=== PATIENT | female | born 1985 | race Caucasian/White ===

== ENCOUNTER 2016-10-04 14:29 | Emergency (ER) | payer BC, OTHER ==
[~2016-10-04 14:29] MED LIST: /LANS30GR PO; IBUP80TA PO; MIRALEX PO; NYSTATIN ORAL PO; VICO5TAB OR
[2016-10-04] MEDS ORDERED: MORPHINE 4 MG/ML 1ML SYRINGE As Ordered ONE (16:07)
[2016-10-04] MEDS ORDERED: KETOROLAC 30 MG/ML VIAL (J1885) As Ordered ONE (16:07)
[2016-10-04] MEDS ORDERED: ONDANSETRON 4MG/2ML VIAL (J2405) As Ordered ONE (16:07)
[2016-10-04 16:40] LABS: BASO % 0.4 % (0.0-1.0); EOS # 0.1 K/mm3 (0.0-0.50); EOS % 1.2 % (0.0-3.0); LARGE UNSTAINED CELL # 0.1 K/mm3 (0.0-0.4); LARGE UNSTAINED CELL % 1.1 % (0.0-4.0); LYMPH # 1.7 K/mm3 (1.5-4.5); MEAN CORPUSCULAR HEMOGLOBIN 28.3 pg (27.0-33.0); MEAN CORPUSCULAR HGB CONC 32.7 g/dl (32.0-36.5); MEAN CORPUSCULAR VOLUME 86.4 fl (80.0-96.0); MONO # 0.3 K/mm3 (0.0-0.8); MONO % 3.7 % (0.0-5.0); NEUTROPHILS # 6.9 K/mm3 (1.8-7.7); NEUTROPHILS % 74.6 % (36.0-66.0); PLATELET COUNT, AUTOMATED 220 k/mm3 (150-450); RED CELL DISTRIBUTION WIDTH 13.6 % (11.5-14.5); WHITE BLOOD COUNT 9.2 K/mm3 (4.0-10.0)
--- NOTE | 2016-10-04 16:55 | REP ---
CT study of the abdomen and pelvis without IV or oral contrast: Renal stone protocol. History: Renal colic. Comparison CT study is from March 14, 2014 done [address] [facility] CT findings: Preliminary digital outcomes specialist radiograph demonstrates tubal ligation clamps bilaterally in the pelvis and clips in the right upper quadrant consistent with a previous cholecystectomy. The lung bases are clear on axial CT images. No pleural effusion is seen. There are granulomatous calcifications, one in the lower lobe on the left and in the middle lobe on the right. There is a granulomatous calcification in the right lobe of the liver and clips are noted in the gallbladder fossa. The liver and spleen are normal in size and otherwise normal and homogeneous in texture. The gallbladder is absent. Pancreas shows no abnormality. No adrenal lesion is seen on either side. There is no evidence of hydronephrosis. No intrarenal calculus is seen. No ureteral stone is observed. No uterine or ovarian abnormality is observed. Urinary bladder is intact. A normal appendix is seen in the right lower quadrant. Small and large intestinal bowel loops are normal in appearance. No bony destructive lesion is seen. No abdominal wall defect is observed. Impression: Post cholecystectomy and bilateral tubal ligation changes. Normal appendix seen. No urinary tract calculus or hydronephrosis seen. No acute intra-abdominal abnormality noted. Signed by Olivier Suarez MD 10/04/2016 04:59 P
--- NOTE | 2016-10-04 17:05 | EDDOCDS ---
Physician Documentation [facility] Name: Imelda Umanzor Age: 31 yrs Sex: Female : 1985 Arrival Date: 10/04/2016 Time: 14:29 Bed 6 Private MD: NO PRIMARY PHYSICIAN, . Disposition: 10/04/16 16:55 Discharged to Home/Self Care. Impression: Unspecified renal colic. - Condition is Stable. - Discharge Instructions: Kidney Stones, Ureteral Colic. - Prescriptions for Percocet 5- 325 mg Oral Tablet - take 1 tablet by ORAL route every 6 hours As needed MDD: 4 tabs; 20 tablet. Zofran 4 mg Oral Tablet - take 1 tablet by ORAL route 4 times per day As needed; 10 tablet. - Medication Reconciliation, Local Pharmacy Hours form. - Follow up: George Ruff; When: Call to arrange an appointment; Reason: Further diagnostic work-up, Recheck today's complaints, Continuance of care. - Problem is an acute exacerbation. - Symptoms have improved. Historical: - Allergies: No known drug Allergies; - Home Meds: 1. none - PMHx: Kidney stones; - PSHx: Cholecystectomy; - Social history: Smoking status: Patient uses tobacco products, light tobacco smoker. No barriers to communication noted, The patient speaks fluent Hungarian, Speaks appropriately for age. - Family history: Not pertinent. - : The pt / caregiver states he / she is not on anticoagulants. Home medication list is obtained from the patient. - Exposure Risk Screening:: None identified. 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 2 in. (157.48 cm) (R); 16:41 Pain 6/10; kr3 16:54 BP 119 / 69; Pulse 66; Resp 16; Temp 97.1; Pulse Ox 100% ; Pain 5/10; ld5 14:31 Body Mass Index 29.26 (72.57 kg, 157.48 cm) dd6 MDM: 14:44 UCG by Nursing ordered. dt4 14:44 Urinalysis Ordered. EDMS 14:44 Urine Culture Ordered. EDMS 15:52 Urinalysis Reviewed. ke 16:02 NS 0.9% 1000 ml IV at 100 mL/hr continuous ordered. ke 16:02 Ondansetron 4 mg IVP once ordered. ke 16:02 ketorolac 30 mg IVP once ordered. ke 16:02 IV Saline Lock ordered. ke 16:02 Undress patient appropriately for examination ordered. ke 16:03 morphine 4 mg IVP once ordered. ke 16:04 Amylase Ordered. EDMS 16:04 Basic Metabolic Profile Ordered. EDMS 16:04 CBC with Diff Ordered. EDMS 16:04 Lipase Ordered. EDMS 16:04 Liver Profile Ordered. EDMS 16:04 CT ABD & PELVIS: No Contrast Ordered. EDMS 16:04 NOTHING BY MOUTH+DIET ordered. EDMS 16:31 Financial registration complete. zo 16:32 [facility] [place] Agreement was scanned into [employer] and attached to record. zo Point of Care Testing: Urine : 15:18 hCG Reading: Negative; Control Reading: Positive; srm Ranges: Administered Medications: 14:19 Drug: morphine 4 mg [morphine 4 mg/mL intravenous cartridge (1 mL)] Route: IVP; Site: kr3 left hand; 16:41 Follow up: Pain 6/10 Adult; Response: Pain is decreased kr3 16:17 Drug: NS 0.9% 1000 ml [sodium chloride 0.9 % intravenous solution] Route: IV; Rate: 100 kr3 mL/hr; Site: left hand; 16:57 Follow up: IV Status: Completed infusion; IV Intake: 100ml ld5 16:17 Drug: Ondansetron 4 mg [ondansetron HCl 2 mg/mL intravenous solution (2 mL)] Route: kr3 IVP; Site: left hand; 16:21 Drug: ketorolac 30 mg [ketorolac 30 mg/mL (1 mL) injection solution (1 mL)] Route: IVP; kr3 Site: left hand; 16:41 Follow up: Response: Pain is decreased kr3 Signatures: Dispatcher [employer] EDMS Jaswant Werner, CHIEF BUSINESS DEVELOPMENT OFFICER CHIEF BUSINESS DEVELOPMENT OFFICER Ivonne Murrell RN RN kr3 Elmira Wharton RN RN odin3 Yuliet Holden Laura, RN RN ld5 Yamilka Anne, SYLVIA WARD dt4 The chart was reviewed and I authenticate all verbal orders and agree with the evaluation and treatment provided.Attachments: 16:32 [facility] Payment Agreement zo MTDD
--- NOTE | 2016-10-04 17:05 | EDDOCDS ---
Nurse's Notes [facility] Name: Imelda Umanzor Age: 31 yrs Sex: Female : 1985 Arrival Date: 10/04/2016 Time: 14:29 Bed 6 Private MD: NO PRIMARY PHYSICIAN, . Diagnosis: Unspecified renal colic Presentation: 10/04 14:38 Presenting complaint: Patient states: Reports back pain and right abdominal pain. Had a jo3 kidney stone in July of 2016. states that it feels like that. Acute neurological deficits are not present. Mechanism of Injury: No Mechanism of Injury. Adult Sepsis Screening: The patient does not have new or worsening altered mentation. Patient's respiratory rate is less than 22. Systolic blood pressure is greater than 100. Patient has a qSOFA score of 0- Negative Sepsis Screen. Suicide/Homicide risk assessment- the patient denies having any suicidal and/or homicidal ideations and does not present with any other emotional, behavioral or mental health complaints. Status: Patient is not a guest service representative or dependent. Transition of care: patient was not received from another setting of care. 14:38 Acuity: DEE Level 3 jo3 14:38 Method Of Arrival: Walkin/Carried/Asstd jo3 Triage Assessment: 14:40 Pain: Pain currently is 10 out of 10 on a pain scale. HIV screening NA for this visit jo3 Offered previously. 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 none - PMHx: Kidney stones; - PSHx: Cholecystectomy; - Social history: Smoking status: Patient uses tobacco products, light tobacco smoker. No barriers to communication noted, The patient speaks fluent Latvian, Speaks appropriately for age. - Family history: Not pertinent. - : The pt / caregiver states he / she is not on anticoagulants. Home medication list is obtained from the patient. - Exposure Risk Screening:: None identified. Screenin:24 Screening information is obtained from the patient. Fall risk: No risks identified. kr3 Assistance ADL's: requires no assistance with activities of daily living. Abuse/DV Screen: The patient / caregiver reports he/she is: not in a situation that causes fear, pain or injury. Nutritional screening: No deficits noted. Advance Directives: Currently, there is no health care proxy. home support is adequate. Assessment: 16:23 General: Appears uncomfortable, Behavior is cooperative. Pain: Location: posterior kr3 aspect of right lateral abdomen, anterior aspect of right lateral abdomen and right lower quadrant Pain currently is 10 out of 10 on a pain scale. Neurological: Level of Consciousness is awake, alert. Respiratory: Respiratory effort is even, unlabored. GI: Abdomen is non- distended Reports lower abdominal pain, nausea. : Denies burning with urination, inability to void, urinary frequency, urgency. Derm: Skin is normal. Musculoskeletal: No deficits noted. 16:41 Reassessment: Patient appears in no apparent distress at this time. Patient states kr3 feeling better. 16:54 General: Appears in no apparent distress, Behavior is cooperative. Pain: Pain currently ld5 is 5 out of 10 on a pain scale. Respiratory: Airway is patent Respiratory effort is even, unlabored. Vital Signs: 14:31 BP 182 / 95; Pulse 99; Resp 18 S; Temp 99.0(O); Pulse Ox 100% on R/A; Weight 72.57 kg dd6 (R); Height 5 ft. 2 in. (157.48 cm) (R); 16:41 Pain 6/10; kr3 16:54 BP 119 / 69; Pulse 66; Resp 16; Temp 97.1; Pulse Ox 100% ; Pain 5/10; ld5 14:31 Body Mass Index 29.26 (72.57 kg, 157.48 cm) dd6 Vitals: 14:31 Log In Time: October 04, 2016 at 14:29. dd6 ED Course: 14:30 Patient visited by Charan Moore PCA. dd6 14:30 Ron Chaparro is Private Physician. dd6 14:30 NO PRIMARY PHYSICIAN, . is Private Physician. dd6 14:30 Patient moved to Waiting dd6 14:32 Patient moved to Pre RCE dd6 14:39 Triage Initiated jo3 14:41 Patient visited by Elmira Wharton RN. jo3 15:18 Urine Culture Sent. srm 15:18 Urinalysis Sent. srm 15:56 Patient visited by Marian Smith PCA. jb5 15:56 Patient moved to Triage 3 jb5 15:57 Ivonne Harris,DANE is Primary Nurse. jb5 15:57 Jaswant Werner FNP is [facility]. ke 15:57 Patient visited by Jaswant Werner FNP. ke 15:57 Patient visited by Jaswant Werner FNP. ke 15:57 Patient moved to 6 jb5 16:21 Amylase Sent. kr3 16:21 Basic Metabolic Profile Sent. kr3 16:21 CBC with Diff Sent. kr3 16:21 Lipase Sent. kr3 16:21 Liver Profile Sent. kr3 16:24 Inserted saline lock: 22 gauge in left hand and blood collected. The patient tolerated kr3 the procedure well. 16:30 Patient visited by Jaswant Werner FNP. ke 16:32 [facility] Payment Agreement was scanned into [employer] and attached to record. zo 16:42 The patient / caregiver is instructed regarding the plan of care and ED course. Patient kr3 has correct armband on for positive identification. Placed in gown. Bed in low position. Call light in reach. Side rails up X 1. 16:54 Discontinued lock intact, bleeding controlled, pressure dressing applied, No ld5 redness/swelling at site. No procedures done that require assistance. 16:55 George Ruff is Referral Physician. ke 16:57 Patient visited by Amy Diaz RN. ld5 Administered Medications: 14:19 Drug: morphine 4 mg [morphine 4 mg/mL intravenous cartridge (1 mL)] Route: IVP; Site: kr3 left hand; 16:41 Follow up: Pain 6/10 Adult; Response: Pain is decreased kr3 16:17 Drug: NS 0.9% 1000 ml [sodium chloride 0.9 % intravenous solution] Route: IV; Rate: 100 kr3 mL/hr; Site: left hand; 16:57 Follow up: IV Status: Completed infusion; IV Intake: 100ml ld5 16:17 Drug: Ondansetron 4 mg [ondansetron HCl 2 mg/mL intravenous solution (2 mL)] Route: kr3 IVP; Site: left hand; 16:21 Drug: ketorolac 30 mg [ketorolac 30 mg/mL (1 mL) injection solution (1 mL)] Route: IVP; kr3 Site: left hand; 16:41 Follow up: Response: Pain is decreased kr3 Point of Care Testing: Urine : 15:18 hCG Reading: Negative; Control Reading: Positive; srm Ranges: Intake: 16:57 IV: 100.00ml; Total: 100.00ml. ld5 Order Results: Lab Order: Urinalysis; SPEC'M 10/04/16 15:13 Test: APPEARANCE, URINE; Value: CLOUDY; Range: CLEAR; Abnormal: Above high normal; Status: F Test: COLOR, URINE; Value: YELLOW; Range: YELLOW; Status: F Test: PH,URINE; Value: 7.0; Range: 5.0-9.0; Units: UNITS; Status: F Test: SPECIFIC GRAVITY URINE AUTO; Value: 1.018; Range: 1.002-1.035; Status: F Test: PROTEIN, URINE AUTO; Value: 1+; Range: NEGATIVE; Abnormal: Above high normal; Units: mg/dL; Status: F Test: GLUCOSE, URINE (UA) AUTO; Value: NEGATIVE; Range: NEGATIVE; Units: mg/dL; Status: F Test: KETONE, URINE AUTO; Value: NEGATIVE; Range: NEGATIVE; Units: mg/dL; Status: F Test: UROBILINOGEN, URINE AUTO; Value: 2.0; Range: 0.0-2.0; Abnormal: Above high normal; Units: mg/dL; Status: F Test: BILIRUBIN, URINE AUTO; Value: NEGATIVE; Range: NEGATIVE; Status: F Test: NITRITE, URINE AUTO; Value: NEGATIVE; Range: NEGATIVE; Status: F Test: LEUKOCYTE ESTERASE, URINE AUTO; Value: 1+; Range: NEGATIVE; Abnormal: Above high normal; Status: F Test: BLOOD, URINE BLOOD; Value: 3+; Range: NEGATIVE; Abnormal: Above high normal; Status: F Test: WBC, URINE AUTO; Value: 7; Range: 0-3; Abnormal: Above high normal; Units: /HPF; Status: F Test: RBC, URINE AUTO; Value: TNTC; Range: 0-3; Abnormal: Above high normal; Units: /HPF; Status: F Test: BACTERIA, URINE AUTO; Value: 1+; Range: NEGATIVE; Abnormal: Above high normal; Status: F Test: SQUAMOUS EPITHELIAL CELL UR AU; Value: 4; Range: 0-6; Units: /HPF; Status: F Test: MUCUS, URINE; Value: SMALL; Range: NEGATIVE; Status: F Test: HYALINE CAST, URINE AUTO; Value: 0; Range: 0-1; Units: /LPF; Status: F Lab Order: CBC with Diff; SPEC'M 10/04/16 16:18 Test: WHITE BLOOD COUNT; Value: 9.2; Range: 4.0-10.0; Units: K/mm3; Status: F Test: RED BLOOD COUNT; Value: 4.76; Range: 4.00-5.40; Units: M/mm3; Status: F Test: HEMOGLOBIN; Value: 13.5; Range: 12.0-16.0; Units: g/dl; Status: F Test: HEMATOCRIT; Value: 41.1; Range: 36.0-47.0; Units: %; Status: F Test: MEAN CORPUSCULAR VOLUME; Value: 86.4; Range: 80.0-96.0; Units: fl; Status: F Test: MEAN CORPUSCULAR HEMOGLOBIN; Value: 28.3; Range: 27.0-33.0; Units: pg; Status: F Test: MEAN CORPUSCULAR HGB CONC; Value: 32.7; Range: 32.0-36.5; Units: g/dl; Status: F Test: RED CELL DISTRIBUTION WIDTH; Value: 13.6; Range: 11.5-14.5; Units: %; Status: F Test: PLATELET COUNT, AUTOMATED; Value: 220; Range: 150-450; Units: k/mm3; Status: F Test: NEUTROPHILS %; Value: 74.6; Range: 36.0-66.0; Abnormal: Above high normal; Units: %; Status: F Test: LYMPH %; Value: 19.0; Range: 24.0-44.0; Abnormal: Below low normal; Units: %; Status: F Test: MONO %; Value: 3.7; Range: 0.0-5.0; Units: %; Status: F Test: EOS %; Value: 1.2; Range: 0.0-3.0; Units: %; Status: F Test: BASO %; Value: 0.4; Range: 0.0-1.0; Units: %; Status: F Test: LARGE UNSTAINED CELL %; Value: 1.1; Range: 0.0-4.0; Units: %; Status: F Test: NEUTROPHILS #; Value: 6.9; Range: 1.8-7.7; Units: K/mm3; Status: F Test: LYMPH #; Value: 1.7; Range: 1.5-4.5; Units: K/mm3; Status: F Test: MONO #; Value: 0.3; Range: 0.0-0.8; Units: K/mm3; Status: F Test: EOS #; Value: 0.1; Range: 0.0-0.50; Units: K/mm3; Status: F Test: BASO #; Value: 0.0; Range: 0.0-0.2; Units: K/mm3; Status: F Test: LARGE UNSTAINED CELL #; Value: 0.1; Range: 0.0-0.4; Units: K/mm3; Status: F Outcome: 16:42 CT Study completed. kr3 16:55 Discharge ordered by Provider. 17:03 Discharge Assessment: patient administered narcotics - yes. Pt provided with safe kr3 discharge. The following High Risk Discharge criteria are identified: None. Discharged to home ambulatory, with friend. Condition: stable. Discharge instructions given to patient, Instructed on discharge instructions, follow up and referral plans. medication usage, no driving heavy equipment, no drinking with medication, Demonstrated understanding of instructions, medications, Pt was receptive of discharge instructions/ teaching. Prescriptions given X 2. Property sent home with patient. 17:04 Patient left the ED. kr3 Signatures: Cesia Rolle, RN RN [facility] Jaswant Werner, COMMUNICATIONS ENGINEERING TECHNICIAN COMMUNICATIONS ENGINEERING TECHNICIAN Ivonne Murrell RN RN kr3 Marian Smith, POOL TABLE MECHANIC POOL TABLE MECHANIC jb5 Elmira WhartonRN RN odin3 Yuliet Holden Daniell, POOL TABLE MECHANIC POOL TABLE MECHANIC dd6 Amy Diaz RN RN ld5 MTDD
--- NOTE | 2016-10-06 18:05 | EDDOCDS ---
Physician Documentation [facility] Name: Imelda Umanzor Age: 31 yrs Sex: Female : 1985 Arrival Date: 10/04/2016 Time: 14:29 Bed 6 Private MD: NO PRIMARY PHYSICIAN, . Disposition: 10/04/16 16:55 Discharged to Home/Self Care. Impression: Unspecified renal colic. - Condition is Stable. - Discharge Instructions: Kidney Stones, Ureteral Colic. - Prescriptions for Percocet 5- 325 mg Oral Tablet - take 1 tablet by ORAL route every 6 hours As needed MDD: 4 tabs; 20 tablet. Zofran 4 mg Oral Tablet - take 1 tablet by ORAL route 4 times per day As needed; 10 tablet. - Medication Reconciliation, Local Pharmacy Hours form. - Follow up: George Ruff; When: Call to arrange an appointment; Reason: Further diagnostic work-up, Recheck today's complaints, Continuance of care. - Problem is an acute exacerbation. - Symptoms have improved. Historical: - Allergies: No known drug Allergies; - Home Meds: 1. none - PMHx: Kidney stones; - PSHx: Cholecystectomy; - Social history: Smoking status: Patient uses tobacco products, light tobacco smoker. No barriers to communication noted, The patient speaks fluent Syriac, Speaks appropriately for age. - Family history: Not pertinent. - : The pt / caregiver states he / she is not on anticoagulants. Home medication list is obtained from the patient. - Exposure Risk Screening:: None identified. 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 2 in. (157.48 cm) (R); 16:41 Pain 6/10; kr3 16:54 BP 119 / 69; Pulse 66; Resp 16; Temp 97.1; Pulse Ox 100% ; Pain 5/10; ld5 14:31 Body Mass Index 29.26 (72.57 kg, 157.48 cm) dd6 MDM: 14:44 UCG by Nursing ordered. dt4 14:44 Urinalysis Ordered. EDMS 14:44 Urine Culture Ordered. EDMS 15:52 Urinalysis Reviewed. ke 16:02 NS 0.9% 1000 ml IV at 100 mL/hr continuous ordered. ke 16:02 Ondansetron 4 mg IVP once ordered. ke 16:02 ketorolac 30 mg IVP once ordered. ke 16:02 IV Saline Lock ordered. ke 16:02 Undress patient appropriately for examination ordered. ke 16:03 morphine 4 mg IVP once ordered. ke 16:04 Amylase Ordered. EDMS 16:04 Basic Metabolic Profile Ordered. EDMS 16:04 CBC with Diff Ordered. EDMS 16:04 Lipase Ordered. EDMS 16:04 Liver Profile Ordered. EDMS 16:04 CT ABD & PELVIS: No Contrast Ordered. EDMS 16:04 NOTHING BY MOUTH+DIET ordered. EDMS 16:31 Financial registration complete. zo 16:32 [facility] Payment Agreement was scanned into [employer] and attached to record. zo 10/05 08:55 T-Sheet-- Draft Copy was scanned into [employer] and attached to record. [facility] Point of Care Testing: Urine : 10/04 15:18 hCG Reading: Negative; Control Reading: Positive; srm Ranges: Administered Medications: 14:19 Drug: morphine 4 mg [morphine 4 mg/mL intravenous cartridge (1 mL)] Route: IVP; Site: kr3 left hand; 16:41 Follow up: Pain 6/10 Adult; Response: Pain is decreased kr3 16:17 Drug: NS 0.9% 1000 ml [sodium chloride 0.9 % intravenous solution] Route: IV; Rate: 100 kr3 mL/hr; Site: left hand; 16:57 Follow up: IV Status: Completed infusion; IV Intake: 100ml ld5 16:17 Drug: Ondansetron 4 mg [ondansetron HCl 2 mg/mL intravenous solution (2 mL)] Route: kr3 IVP; Site: left hand; 16:21 Drug: ketorolac 30 mg [ketorolac 30 mg/mL (1 mL) injection solution (1 mL)] Route: IVP; kr3 Site: left hand; 16:41 Follow up: Response: Pain is decreased kr3 Signatures: Dispatcher [employer] EDMS Jaswant Werner, FLOWER BUNCHER OR PICKER FLOWER BUNCHER OR PICKER Ivonne Murrell RN RN kr3 Elmira WhartonRN RN jo3 Yuliet Holden LauraRN RN ld5 Yamilka Anne PA-C PA-C dt4 Jessica Holliday The chart was reviewed and I authenticate all verbal orders and agree with the evaluation and treatment provided.Attachments: 16:32 [facility] Payment Agreement zo 10/05 08:55 T-Sheet-- Draft Copy [facility] Chart Complete MTDD
--- NOTE | 2016-10-06 18:05 | EDDOCDS ---
Nurse's Notes [facility] Name: Imelda Umanzor Age: 31 yrs Sex: Female : 1985 Arrival Date: 10/04/2016 Time: 14:29 Bed 6 Private MD: NO PRIMARY PHYSICIAN, . Diagnosis: Unspecified renal colic Presentation: 10/04 14:38 Presenting complaint: Patient states: Reports back pain and right abdominal pain. Had a jo3 kidney stone in July of 2016. states that it feels like that. Acute neurological deficits are not present. Mechanism of Injury: No Mechanism of Injury. Adult Sepsis Screening: The patient does not have new or worsening altered mentation. Patient's respiratory rate is less than 22. Systolic blood pressure is greater than 100. Patient has a qSOFA score of 0- Negative Sepsis Screen. Suicide/Homicide risk assessment- the patient denies having any suicidal and/or homicidal ideations and does not present with any other emotional, behavioral or mental health complaints. Status: Patient is not a community service technician or dependent. Transition of care: patient was not received from another setting of care. 14:38 Acuity: DEE Level 3 jo3 14:38 Method Of Arrival: Walkin/Carried/Asstd jo3 Triage Assessment: 14:40 Pain: Pain currently is 10 out of 10 on a pain scale. HIV screening NA for this visit jo3 Offered previously. 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 none - PMHx: Kidney stones; - PSHx: Cholecystectomy; - Social history: Smoking status: Patient uses tobacco products, light tobacco smoker. No barriers to communication noted, The patient speaks fluent Lithuanian, Speaks appropriately for age. - Family history: Not pertinent. - : The pt / caregiver states he / she is not on anticoagulants. Home medication list is obtained from the patient. - Exposure Risk Screening:: None identified. Screenin:24 Screening information is obtained from the patient. Fall risk: No risks identified. kr3 Assistance ADL's: requires no assistance with activities of daily living. Abuse/DV Screen: The patient / caregiver reports he/she is: not in a situation that causes fear, pain or injury. Nutritional screening: No deficits noted. Advance Directives: Currently, there is no health care proxy. home support is adequate. Assessment: 16:23 General: Appears uncomfortable, Behavior is cooperative. Pain: Location: posterior kr3 aspect of right lateral abdomen, anterior aspect of right lateral abdomen and right lower quadrant Pain currently is 10 out of 10 on a pain scale. Neurological: Level of Consciousness is awake, alert. Respiratory: Respiratory effort is even, unlabored. GI: Abdomen is non- distended Reports lower abdominal pain, nausea. : Denies burning with urination, inability to void, urinary frequency, urgency. Derm: Skin is normal. Musculoskeletal: No deficits noted. 16:41 Reassessment: Patient appears in no apparent distress at this time. Patient states kr3 feeling better. 16:54 General: Appears in no apparent distress, Behavior is cooperative. Pain: Pain currently ld5 is 5 out of 10 on a pain scale. Respiratory: Airway is patent Respiratory effort is even, unlabored. Vital Signs: 14:31 BP 182 / 95; Pulse 99; Resp 18 S; Temp 99.0(O); Pulse Ox 100% on R/A; Weight 72.57 kg dd6 (R); Height 5 ft. 2 in. (157.48 cm) (R); 16:41 Pain 6/10; kr3 16:54 BP 119 / 69; Pulse 66; Resp 16; Temp 97.1; Pulse Ox 100% ; Pain 5/10; ld5 14:31 Body Mass Index 29.26 (72.57 kg, 157.48 cm) dd6 Vitals: 14:31 Log In Time: October 04, 2016 at 14:29. dd6 ED Course: 14:30 Patient visited by Charan Moore PCA. dd6 14:30 Ron Chaparro is Private Physician. dd6 14:30 NO PRIMARY PHYSICIAN, . is Private Physician. dd6 14:30 Patient moved to Waiting dd6 14:32 Patient moved to Pre RCE dd6 14:39 Triage Initiated jo3 14:41 Patient visited by Elmira Wharton RN. jo3 15:18 Urine Culture Sent. srm 15:18 Urinalysis Sent. srm 15:56 Patient visited by Marian Smith PCA. jb5 15:56 Patient moved to Triage 3 jb5 15:57 Ivonne Harris,DANE is Primary Nurse. jb5 15:57 Jaswant Werner FNP is [facility]. ke 15:57 Patient visited by Jaswant Werner FNP. ke 15:57 Patient visited by Jaswant Werner FNP. ke 15:57 Patient moved to 6 jb5 16:21 Amylase Sent. kr3 16:21 Basic Metabolic Profile Sent. kr3 16:21 CBC with Diff Sent. kr3 16:21 Lipase Sent. kr3 16:21 Liver Profile Sent. kr3 16:24 Inserted saline lock: 22 gauge in left hand and blood collected. The patient tolerated kr3 the procedure well. 16:30 Patient visited by Jaswant Werner FNP. ke 16:32 [facility] Payment Agreement was scanned into [employer] and attached to record. zo 16:42 The patient / caregiver is instructed regarding the plan of care and ED course. Patient rigoberto has correct armband on for positive identification. Placed in gown. Bed in low position. Call light in reach. Side rails up X 1. 16:54 Discontinued lock intact, bleeding controlled, pressure dressing applied, No ld5 redness/swelling at site. No procedures done that require assistance. 16:55 George Ruff is Referral Physician. ke 16:57 Patient visited by Amy Diaz RN. ld5 17:08 CT ABD & PELVIS: No Contrast Returned. EDMS 10/05 08:55 T-Sheet-- Draft Copy was scanned into [employer] and attached to record. [facility] Administered Medications: 10/04 14:19 Drug: morphine 4 mg [morphine 4 mg/mL intravenous cartridge (1 mL)] Route: IVP; Site: kr3 left hand; 16:41 Follow up: Pain 6/10 Adult; Response: Pain is decreased kr3 16:17 Drug: NS 0.9% 1000 ml [sodium chloride 0.9 % intravenous solution] Route: IV; Rate: 100 kr3 mL/hr; Site: left hand; 16:57 Follow up: IV Status: Completed infusion; IV Intake: 100ml ld5 16:17 Drug: Ondansetron 4 mg [ondansetron HCl 2 mg/mL intravenous solution (2 mL)] Route: kr3 IVP; Site: left hand; 16:21 Drug: ketorolac 30 mg [ketorolac 30 mg/mL (1 mL) injection solution (1 mL)] Route: IVP; kr3 Site: left hand; 16:41 Follow up: Response: Pain is decreased kr3 Point of Care Testing: Urine : 15:18 hCG Reading: Negative; Control Reading: Positive; srm Ranges: Intake: 16:57 IV: 100.00ml; Total: 100.00ml. ld5 Order Results: Lab Order: Urinalysis; SPEC'M 10/04/16 15:13 Test: APPEARANCE, URINE; Value: CLOUDY; Range: CLEAR; Abnormal: Above high normal; Status: F Test: COLOR, URINE; Value: YELLOW; Range: YELLOW; Status: F Test: PH,URINE; Value: 7.0; Range: 5.0-9.0; Units: UNITS; Status: F Test: SPECIFIC GRAVITY URINE AUTO; Value: 1.018; Range: 1.002-1.035; Status: F Test: PROTEIN, URINE AUTO; Value: 1+; Range: NEGATIVE; Abnormal: Above high normal; Units: mg/dL; Status: F Test: GLUCOSE, URINE (UA) AUTO; Value: NEGATIVE; Range: NEGATIVE; Units: mg/dL; Status: F Test: KETONE, URINE AUTO; Value: NEGATIVE; Range: NEGATIVE; Units: mg/dL; Status: F Test: UROBILINOGEN, URINE AUTO; Value: 2.0; Range: 0.0-2.0; Abnormal: Above high normal; Units: mg/dL; Status: F Test: BILIRUBIN, URINE AUTO; Value: NEGATIVE; Range: NEGATIVE; Status: F Test: NITRITE, URINE AUTO; Value: NEGATIVE; Range: NEGATIVE; Status: F Test: LEUKOCYTE ESTERASE, URINE AUTO; Value: 1+; Range: NEGATIVE; Abnormal: Above high normal; Status: F Test: BLOOD, URINE BLOOD; Value: 3+; Range: NEGATIVE; Abnormal: Above high normal; Status: F Test: WBC, URINE AUTO; Value: 7; Range: 0-3; Abnormal: Above high normal; Units: /HPF; Status: F Test: RBC, URINE AUTO; Value: TNTC; Range: 0-3; Abnormal: Above high normal; Units: /HPF; Status: F Test: BACTERIA, URINE AUTO; Value: 1+; Range: NEGATIVE; Abnormal: Above high normal; Status: F Test: SQUAMOUS EPITHELIAL CELL UR AU; Value: 4; Range: 0-6; Units: /HPF; Status: F Test: MUCUS, URINE; Value: SMALL; Range: NEGATIVE; Status: F Test: HYALINE CAST, URINE AUTO; Value: 0; Range: 0-1; Units: /LPF; Status: F Lab Order: Urine Culture; SPEC'M 10/04/16 15:13 Test: URINE CULTURE; Value: <EXTERNAL COMMENT eCWMed> FULL REPORT IN LAB NOTES (eCW and Medent).; Status: F Test: URINE CULTURE; Value: URINE CULTURE RESULT SPECIMEN APPEARS CONTAMINATED; Status: F Lab Order: CBC with Diff; SPEC'M 10/04/16 16:18 Test: WHITE BLOOD COUNT; Value: 9.2; Range: 4.0-10.0; Units: K/mm3; Status: F Test: RED BLOOD COUNT; Value: 4.76; Range: 4.00-5.40; Units: M/mm3; Status: F Test: HEMOGLOBIN; Value: 13.5; Range: 12.0-16.0; Units: g/dl; Status: F Test: HEMATOCRIT; Value: 41.1; Range: 36.0-47.0; Units: %; Status: F Test: MEAN CORPUSCULAR VOLUME; Value: 86.4; Range: 80.0-96.0; Units: fl; Status: F Test: MEAN CORPUSCULAR HEMOGLOBIN; Value: 28.3; Range: 27.0-33.0; Units: pg; Status: F Test: MEAN CORPUSCULAR HGB CONC; Value: 32.7; Range: 32.0-36.5; Units: g/dl; Status: F Test: RED CELL DISTRIBUTION WIDTH; Value: 13.6; Range: 11.5-14.5; Units: %; Status: F Test: PLATELET COUNT, AUTOMATED; Value: 220; Range: 150-450; Units: k/mm3; Status: F Test: NEUTROPHILS %; Value: 74.6; Range: 36.0-66.0; Abnormal: Above high normal; Units: %; Status: F Test: LYMPH %; Value: 19.0; Range: 24.0-44.0; Abnormal: Below low normal; Units: %; Status: F Test: MONO %; Value: 3.7; Range: 0.0-5.0; Units: %; Status: F Test: EOS %; Value: 1.2; Range: 0.0-3.0; Units: %; Status: F Test: BASO %; Value: 0.4; Range: 0.0-1.0; Units: %; Status: F Test: LARGE UNSTAINED CELL %; Value: 1.1; Range: 0.0-4.0; Units: %; Status: F Test: NEUTROPHILS #; Value: 6.9; Range: 1.8-7.7; Units: K/mm3; Status: F Test: LYMPH #; Value: 1.7; Range: 1.5-4.5; Units: K/mm3; Status: F Test: MONO #; Value: 0.3; Range: 0.0-0.8; Units: K/mm3; Status: F Test: EOS #; Value: 0.1; Range: 0.0-0.50; Units: K/mm3; Status: F Test: BASO #; Value: 0.0; Range: 0.0-0.2; Units: K/mm3; Status: F Test: LARGE UNSTAINED CELL #; Value: 0.1; Range: 0.0-0.4; Units: K/mm3; Status: F Radiology Order: CT ABD & PELVIS: No Contrast Test: CT ABD & PELVIS: No Contrast REASON FOR EXAMINATION: Renal colic; CT study of the abdomen and pelvis without IV or oral contrast: Renal stone; protocol.; ; History: Renal colic.; ; Comparison CT study is from March 14, 2014 done at [facility].; ; CT findings: Preliminary digital grain sacker radiograph demonstrates tubal ligation; clamps bilaterally in the pelvis and clips in the right upper quadrant consistent; with a previous cholecystectomy. The lung bases are clear on axial CT images.; No pleural effusion is seen. There are granulomatous calcifications, one in the; lower lobe on the left and in the middle lobe on the right. There is a; granulomatous calcification in the right lobe of the liver and clips are noted in; the gallbladder fossa. The liver and spleen are normal in size and otherwise; normal and homogeneous in texture. The gallbladder is absent. Pancreas shows no; abnormality. No adrenal lesion is seen on either side. There is no evidence of; hydronephrosis. No intrarenal calculus is seen. No ureteral stone is observed.; No uterine or ovarian abnormality is observed. Urinary bladder is intact. A; normal appendix is seen in the right lower quadrant. Small and large intestinal; bowel loops are normal in appearance. No bony destructive lesion is seen. No; abdominal wall defect is observed.; ; Impression:; ; Post cholecystectomy and bilateral tubal ligation changes. Normal appendix seen.; No urinary tract calculus or hydronephrosis seen. No acute intra-abdominal; abnormality noted.; ; ; Signed by; Olivier Suarez MD 10/04/2016 04:59 P; Outcome: 16:42 CT Study completed. kr3 16:55 Discharge ordered by Provider. armando 17:03 Discharge Assessment: patient administered narcotics - yes. Pt provided with safe kr3 discharge. The following High Risk Discharge criteria are identified: None. Discharged to home ambulatory, with friend. Condition: stable. Discharge instructions given to patient, Instructed on discharge instructions, follow up and referral plans. medication usage, no driving heavy equipment, no drinking with medication, Demonstrated understanding of instructions, medications, Pt was receptive of discharge instructions/ teaching. Prescriptions given X 2. Property sent home with patient. 17:04 Patient left the ED. kr3 Signatures: Dispatcher [employer] EDMS Cesia Rolle, Jaswant Zavala RN, TRUCKING MANAGER TRUCKING MANAGER Ivonne Murrell RN RN kr3 Marian Smith, SANITATION DIRECTOR SANITATION DIRECTOR jb5 Elmira Wharton RN RN jo3 Yuliet Holden Daniell, SANITATION DIRECTOR SANITATION DIRECTOR dd6 Amy Diaz RN RN ld5 Jessica Holliday Chart Complete MTDD
--- NOTE | 2016-10-06 18:05 | EDDOCDS ---
Physician Documentation [facility] Name: Imelda Umanzor Age: 31 yrs Sex: Female : 1985 Arrival Date: 10/04/2016 Time: 14:29 Bed 6 Private MD: NO PRIMARY PHYSICIAN, . Disposition: 10/04/16 16:55 Discharged to Home/Self Care. Impression: Unspecified renal colic. - Condition is Stable. - Discharge Instructions: Kidney Stones, Ureteral Colic. - Prescriptions for Percocet 5- 325 mg Oral Tablet - take 1 tablet by ORAL route every 6 hours As needed MDD: 4 tabs; 20 tablet. Zofran 4 mg Oral Tablet - take 1 tablet by ORAL route 4 times per day As needed; 10 tablet. - Medication Reconciliation, Local Pharmacy Hours form. - Follow up: George Ruff; When: Call to arrange an appointment; Reason: Further diagnostic work-up, Recheck today's complaints, Continuance of care. - Problem is an acute exacerbation. - Symptoms have improved. Historical: - Allergies: No known drug Allergies; - Home Meds: 1. none - PMHx: Kidney stones; - PSHx: Cholecystectomy; - Social history: Smoking status: Patient uses tobacco products, light tobacco smoker. No barriers to communication noted, The patient speaks fluent Italian, Speaks appropriately for age. - Family history: Not pertinent. - : The pt / caregiver states he / she is not on anticoagulants. Home medication list is obtained from the patient. - Exposure Risk Screening:: None identified. 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 2 in. (157.48 cm) (R); 16:41 Pain 6/10; kr3 16:54 BP 119 / 69; Pulse 66; Resp 16; Temp 97.1; Pulse Ox 100% ; Pain 5/10; ld5 14:31 Body Mass Index 29.26 (72.57 kg, 157.48 cm) dd6 MDM: 14:44 UCG by Nursing ordered. dt4 14:44 Urinalysis Ordered. EDMS 14:44 Urine Culture Ordered. EDMS 15:52 Urinalysis Reviewed. ke 16:02 NS 0.9% 1000 ml IV at 100 mL/hr continuous ordered. ke 16:02 Ondansetron 4 mg IVP once ordered. ke 16:02 ketorolac 30 mg IVP once ordered. ke 16:02 IV Saline Lock ordered. ke 16:02 Undress patient appropriately for examination ordered. ke 16:03 morphine 4 mg IVP once ordered. ke 16:04 Amylase Ordered. EDMS 16:04 Basic Metabolic Profile Ordered. EDMS 16:04 CBC with Diff Ordered. EDMS 16:04 Lipase Ordered. EDMS 16:04 Liver Profile Ordered. EDMS 16:04 CT ABD & PELVIS: No Contrast Ordered. EDMS 16:04 NOTHING BY MOUTH+DIET ordered. EDMS 16:31 Financial registration complete. zo 16:32 [facility] Payment Agreement was scanned into [employer] and attached to record. zo 10/05 08:55 T-Sheet-- Draft Copy was scanned into [employer] and attached to record. [facility] Point of Care Testing: Urine : 10/04 15:18 hCG Reading: Negative; Control Reading: Positive; srm Ranges: Administered Medications: 14:19 Drug: morphine 4 mg [morphine 4 mg/mL intravenous cartridge (1 mL)] Route: IVP; Site: kr3 left hand; 16:41 Follow up: Pain 6/10 Adult; Response: Pain is decreased kr3 16:17 Drug: NS 0.9% 1000 ml [sodium chloride 0.9 % intravenous solution] Route: IV; Rate: 100 kr3 mL/hr; Site: left hand; 16:57 Follow up: IV Status: Completed infusion; IV Intake: 100ml ld5 16:17 Drug: Ondansetron 4 mg [ondansetron HCl 2 mg/mL intravenous solution (2 mL)] Route: kr3 IVP; Site: left hand; 16:21 Drug: ketorolac 30 mg [ketorolac 30 mg/mL (1 mL) injection solution (1 mL)] Route: IVP; kr3 Site: left hand; 16:41 Follow up: Response: Pain is decreased kr3 Signatures: Dispatcher [employer] EDMS Jaswant Werner, CLERK CLERK Ivonne Murrell RN RN kr3 Elmira WhartonRN RN jo3 Yuliet Holden LauraRN RN ld5 aYmilka Anne PA-C PA-C dt4 Jessica Holliday The chart was reviewed and I authenticate all verbal orders and agree with the evaluation and treatment provided.Attachments: 16:32 [facility] Payment Agreement zo 10/05 08:55 T-Sheet-- Draft Copy [facility] Chart Complete MTDD
== END 2016-10-04 17:04 | disposition home or self-care (01) ==
LOC: M ED 14:29
DX: N20.1 Calculus of ureter (principal); Z72.0 Tobacco use
CPT/HCPCS: 36415; 74176; 81001; 81025; 85025; 87086; 96361; 96374; 96375; 99284; J1885; J2405

== ENCOUNTER 2017-02-03 15:17 | Emergency (ER) | payer MEDICAID, OTHER, SELFPAY ==
[~2017-02-03] VITALS: Ht 154.9 cm; Wt 68.0 kg
[2017-02-03] MEDS ORDERED: ONDANSETRON 4MG/2ML VIAL (J2405) IV ONE (16:15)
[2017-02-03] MEDS ORDERED: MORPHINE 4 MG/ML 1ML SYRINGE IV ONE (16:15)
[2017-02-03 17:07] LABS: ANION GAP 10 MEQ/L (8-16); BLOOD UREA NITROGEN 7 MG/DL (7-18); CALCIUM LEVEL 9.2 MG/DL (8.5-10.1); CARBON DIOXIDE LEVEL 22 MEQ/L (21-32); CHLORIDE LEVEL 109 MEQ/L (98-107); CREATININE FOR GFR 0.65 MG/DL (0.55-1.02); GLOMERULAR FILTRATION RATE > 60.0 (>60); GLUCOSE, FASTING 106 MG/DL (70-105); POTASSIUM SERUM 3.8 MEQ/L (3.5-5.1); SODIUM LEVEL 141 MEQ/L (136-145)
[2017-02-03] MEDS ORDERED: ISOVUE-370 76% 100ML VIAL (Q9967) As Ordered ONE (17:30)
[2017-02-03 17:50] LABS: METHADONE URINE NEGATIVE (NEGATIVE)
[2017-02-03 18:08] LABS: MEAN CORPUSCULAR HGB CONC 34.6 g/dl (32.0-36.5); MEAN CORPUSCULAR VOLUME 80.9 fl (80.0-96.0); PLATELET COUNT, AUTOMATED 291 k/mm3 (150-450); RED CELL DISTRIBUTION WIDTH 13.7 % (11.5-14.5); WHITE BLOOD COUNT 15.8 K/mm3 (4.0-10.0)
[2017-02-03 18:09] LABS: BASO % 0.2 % (0.0-1.0); DIFF SLIDE NUMBER 118; EOS # 0.1 K/mm3 (0.0-0.50); EOS % 0.5 % (0.0-3.0); LARGE UNSTAINED CELL # 0.1 K/mm3 (0.0-0.4); LARGE UNSTAINED CELL % 0.7 % (0.0-4.0); LYMPH # 1.8 K/mm3 (1.5-4.5); LYMPH % 11.2 % (24.0-44.0); MONO # 0.5 K/mm3 (0.0-0.8); MONO % 3.4 % (0.0-5.0); NEUTROPHILS # 13.3 K/mm3 (1.8-7.7); NEUTROPHILS % 84.1 % (36.0-66.0)
--- NOTE | 2017-02-03 18:20 | REPUSA ---
CT of the abdomen and pelvis with contrast Clinical statement: Pain. Technique: Multiple axial CT images were obtained from the base of the lungs through the floor of the pelvis utilizing 5 mm axial slices after administration of nonionic intravenous contrast. Coronal an d sagittal reconstructions were also obtained. Comparison: 10/04/2016. Findings: Chest: The visualized lung bases are clear. Abdomen: The liver, spleen, pancreas, kidneys, and adrenal glands are unremarkable. The aorta is with in normal limits. There is no evidence of abdominal lymphadenopathy or ascites. Pelvis: The bowel is unremarkable, with no obstructive or inflammatory changes. The appendix is erica l. The urinary bladder is within normal limits. The other pelvic structures appear grossly intact. Th ere is no evidence of pelvic lymphadenopathy or ascites. Bones: There are no suspicious osseous abnormalities seen. Impression: Unremarkable CT examination of the abdomen and pelvis.
[2017-02-03] MEDS ORDERED: PHENAZOPYRIDINE 100 MG TAB PO ONE (19:30)
[2017-02-03] MEDS ORDERED: BACT800T5 PO (19:34)
[2017-02-03] MEDS ORDERED: PYRI200T5 PO (19:34)
[2017-02-03 19:40] VITALS: BP 126/75
== END 2017-02-03 19:48 | disposition home or self-care (01) ==
LOC: M ED 17:01
DX: R30.0 Dysuria (principal); R10.2 Pelvic and perineal pain; F15.10 Other stimulant abuse, uncomplicated
CPT/HCPCS: 36415; 74177; 80048; 80306; 81001; 81025; 85025; 87086; 87210; 87491; 87591; 96374; 96375; 99284; J2405; Q9967

== ENCOUNTER → 2017-04-21 | Outpatient (CLI) | payer SELFPAY ==
[~2017-04-21] MED LIST changes: +BACT800T5 PO; +PYRI1TAB5 PO
== END ==
LOC: M OUTALCOH 13:55
PROVIDERS: ATTEND Psychiatry & Neurology Psychiatry
DX: F11.20 Opioid dependence, uncomplicated (principal); F15.20 Other stimulant dependence, uncomplicated; F12.20 Cannabis dependence, uncomplicated

== ENCOUNTER → 2017-08-11 | Outpatient (CLI) | payer OTHER | LOC: M OUTALCOH 11:42 | PROVIDERS: ATTEND Psychiatry & Neurology Psychiatry | DX: F11.20 Opioid dependence, uncomplicated (principal); F15.20 Other stimulant dependence, uncomplicated ==

== ENCOUNTER 2017-08-27 15:46 | Outpatient (RCR) | payer OTHER | END 2017-09-07 | LOC: M OUTALCOH 15:46 | DX: F11.20 Opioid dependence, uncomplicated (principal); F15.20 Other stimulant dependence, uncomplicated; F12.20 Cannabis dependence, uncomplicated; F17.200 Nicotine dependence, unspecified, uncomplicated ==

== ENCOUNTER → 2017-10-09 | Outpatient (REF) | payer OTHER ==
[2017-10-09 14:26] LABS: APPEARANCE, URINE CLEAR (CLEAR); BACTERIA, URINE AUTO 1+ (NEGATIVE); BILIRUBIN, URINE AUTO NEGATIVE (NEGATIVE); BLOOD, URINE BLOOD NEGATIVE (NEGATIVE); COLOR, URINE AMBER (YELLOW); GLUCOSE, URINE (UA) AUTO NEGATIVE (NEGATIVE); KETONE, URINE AUTO NEGATIVE (NEGATIVE); LEUKOCYTE ESTERASE, URINE AUTO NEGATIVE (NEGATIVE); NITRITE, URINE AUTO NEGATIVE (NEGATIVE); PROTEIN, URINE AUTO NEGATIVE (NEGATIVE); RBC, URINE AUTO 1 /HPF (0-3); SPECIFIC GRAVITY URINE AUTO 1.013 (1.002-1.035); SQUAMOUS EPITHELIAL CELL UR AU 1 /HPF (0-6); UROBILINOGEN, URINE AUTO 0.2 mg/dL (0.0-2.0); WBC, URINE AUTO 0 /HPF (0-3)
== END ==
LOC: M SFHCADAM 12:25
DX: R30.0 Dysuria (principal)

== ENCOUNTER → 2017-10-28 | Outpatient (REF) | payer OTHER ==
[2017-10-28 13:00] LABS: BASO # 0.1 10^3/uL (0.0-0.2); EOS # 0.2 10^3/uL (0.0-0.50); EOS % 2.4 % (0.0-3.0); HEMATOCRIT 41.7 % (36.0-47.0); HEMOGLOBIN 13.4 g/dl (12.0-16.0); IMMATURE GRANULOCYTE % 0.3 % (0-3.0); LYMPH # 2.9 10^3/uL (1.5-4.5); LYMPH % 32.3 % (24.0-44.0); MEAN CORPUSCULAR HEMOGLOBIN 27.6 pg (27.0-33.0); MEAN CORPUSCULAR HGB CONC 32.1 g/dl (32.0-36.5); MEAN CORPUSCULAR VOLUME 85.8 fl (80.0-96.0); MONO # 0.6 10^3/uL (0.0-0.8); MONO % 6.9 % (0.0-5.0); NEUTROPHILS # 5.1 10^3/uL (1.8-7.7); NEUTROPHILS % 57.1 % (36.0-66.0); PLATELET COUNT, AUTOMATED 262 10^3/uL (150-450); RED BLOOD COUNT 4.86 10^6/uL (4.00-5.40); RED CELL DISTRIBUTION WIDTH 15.9 % (11.5-14.5); WHITE BLOOD COUNT 8.9 10^3/uL (4.0-10.0)
[2017-10-28 13:16] LABS: ALBUMIN 3.9 GM/DL (3.2-5.2); ALBUMIN/GLOBULIN RATIO 0.95 (1.00-1.93); ALKALINE PHOSPHATASE 93 U/L (45-117); ALT/SGPT 73 U/L (12-78); ANION GAP 5 MEQ/L (8-16); AST/SGOT 29 U/L (7-37); BILIRUBIN,TOTAL 0.3 MG/DL (0.2-1.0); BLOOD UREA NITROGEN 16 MG/DL (7-18); CALCIUM LEVEL 8.9 MG/DL (8.5-10.1); CARBON DIOXIDE LEVEL 26 MEQ/L (21-32); CHLORIDE LEVEL 108 MEQ/L (98-107); CHOLESTEROL LEVEL 204 MG/DL (<200); CHOLESTEROL RISK RATIO 4.434 (<5); CREATININE FOR GFR 0.61 MG/DL (0.55-1.30); FREE T4 1.02 NG/DL (0.76-1.46); GLOMERULAR FILTRATION RATE > 60.0 (>60); GLUCOSE, FASTING 94 MG/DL (70-100); HDL CHOLESTEROL 46 MG/DL (>40); LDL CHOLESTEROL 129.8 MG/DL (<100); NON-HDL-C 158 MG/DL; POTASSIUM SERUM 4.6 MEQ/L (3.5-5.1); SODIUM LEVEL 139 MEQ/L (136-145); TRIGLYCERIDES LEVEL 141 MG/DL (<150)
== END ==
LOC: M SFHCADAM 09:33
DX: Z00.00 Encounter for general adult medical examination without abnormal findings (principal); F41.9 Anxiety disorder, unspecified; Z87.898 Personal history of other specified conditions; R76.8 Other specified abnormal immunological findings in serum

== ENCOUNTER 2022-04-26 15:34 | Emergency (ER) | payer OTHER ==
[~2022-04-26] VITALS: Ht 154.9 cm; Wt 69.8 kg
[2022-04-26 19:27] VITALS: BP 136/71
== END 2022-04-26 19:51 | disposition home or self-care (01) ==
LOC: M ED 15:34
DX: S93.402A Sprain of unspecified ligament of left ankle, initial encounter (principal); X50.9XXA Other and unspecified overexertion or strenuous movements or postures, initial encounter; Y92.018 Other place in single-family (private) house as the place of occurrence of the external cause; F17.210 Nicotine dependence, cigarettes, uncomplicated